=== PATIENT | male | born 1945 | race Caucasian/White ===

== ENCOUNTER 2017-08-16 19:02 | Emergency (ER) | payer MEDICARE, OTHER ==
--- NOTE | 2017-08-16 19:42 | RAD ---
CHEST ONE VIEW 08/16/17 HISTORY: Emergency exam. Chest pain. COMPARISON: Chest one view 01/08/17. FINDINGS: The lungs are clear. No pneumothorax or effusion. The cardiac silhouette and mediastinal contours are within normal limits. No displaced rib fracture. IMPRESSION: No acute intrathoracic abnormality. POS: [facility]
== END 2017-08-16 20:34 | disposition home or self-care (01) ==
LOC: ERS 19:02
DX: S29.012A Strain of muscle and tendon of back wall of thorax, initial encounter (principal); I10 Essential (primary) hypertension; E11.9 Type 2 diabetes mellitus without complications; F17.210 Nicotine dependence, cigarettes, uncomplicated; Z79.899 Other long term (current) drug therapy; Z79.84 Long term (current) use of oral hypoglycemic drugs; X50.1XXA Overexertion from prolonged static or awkward postures, initial encounter
CPT/HCPCS: 71010

== ENCOUNTER 2017-12-09 13:10 | Emergency (ER) | payer MEDICARE, OTHER | END 2017-12-09 14:54 | disposition left against medical advice (07) | LOC: ERS 13:10 | DX: Z53.21 Procedure and treatment not carried out due to patient leaving prior to being seen by health care provider (principal) ==

== ENCOUNTER 2017-12-20 15:59 | Inpatient (IN) | payer MEDICARE, OTHER ==
[2017-12-20 16:46] LABS: #Eosinphils 0.1 thou/uL (0.0-0.7); #Lymphocytes 2.6 thou/uL (1.20-3.40); #Monocytes 0.7 thou/uL (0.11-0.59); #Neutrophils 10.6 thou/uL (1.40-6.50); %Basophils 0.2 % (0.0-1.0); %Eosinophils 0.4 % (0.0-10.0); %Lymphocytes 18.6 % (21.0-51.0); %Monocytes 5.2 % (0.0-10.0); %Neutrophils 75.6 % (42.0-75.0); Hemoglobin 10.7 g/dL (14.0-18.0); Mean Corpuscular Hemoglobin 27.6 pg (27.0-31.0); Mean Corpuscular Volume 89.2 fl (80.0-94.0); Mean Platelet Volume 7.2 fL (7.4-10.4); Platelet Count 412 thou/uL (130-400); RBC Distribution Width 16.5 % (11.5-14.5); Red Blood Cell (RBC) Count 3.87 mill/uL (4.70-6.10)
[2017-12-20 16:53] LABS: Lactic Acid 3.3 mmol/L (0.5-2.2)
[2017-12-20 16:54] LABS: INR-International Normal Ratio 1.1; PTT 34.4 SEC (22.9-36.1); Prothrombin Time 14.7 SEC (12.0-14.7)
[2017-12-20 16:58] LABS: Bilirubin Negative (Negative); Blood, Urine Moderate (Negative); Clarity CLOUDY (Clear); Glucose, Urine (Dipstick) 100 mg/dL (Negative); Leukocyte Large (Negative); Nitrite Negative (Negative); Protein, Urine (Dipstick) 30 mg/dL (Neg-Trace); Specific Gravity, Urine 1.015 (1.002-1.036); Urobilinogen 0.2 mg/dL (0.2-1.0); pH, Urine 5.5 (5.0-9.0)
[2017-12-20 17:00] LABS: Bacteria/HPF None Seen HPF (None Seen); Hyaline Casts/LPF 7-10 HYALINE CAST LPF (0-3 Hyaline); Pathc Cast-AUWi Flag 1.45 (0-2.49); Squamous Epithelial None Seen HPF (0-3)
[2017-12-20 17:00] LABS: ALT (SGPT) 20 U/L (8-55); AST (SGOT) 20 U/L (5-34); Albumin 3.1 g/dL (3.4-4.8); Alcohol Less than 10 mg/dL (Less than 10); Alkaline Phosphatase 98 U/L (40-150); Anion Gap 14 mmol/L (10-20); BUN (Urea Nitrogen) 21 mg/dL (8.4-25.7); Bilirubin, Total 0.2 mg/dL (0.2-1.2); Calc. Creatinine Clearance 0 mL/min (70-130); Calcium 9.8 mg/dL (7.8-10.44); Carbon Dioxide 22 mmol/L (23-31); Chloride 107 mmol/L (98-107); Estimated GFR-MDRD Greater than 90; Globulin 4.6 g/dL (2.4-3.5); Glucose 165 mg/dL (83-110); Lipase 132 U/L (8-78); Potassium 4.3 mmol/L (3.5-5.1); Protein, Total 7.7 g/dL (5.8-8.1); Sodium 139 mmol/L (136-145)
[2017-12-20 17:03] LABS: Troponin I 0.013 ng/mL (< 0.028)
[2017-12-20 17:07] LABS: Base Excess-Venous -3.2 mmol/L (0 (+/- 2.5)); Bicarbonate (HCO3v) 20.5 mmol/L (1.0-85.0); CO2 Tension (PvCO2) 31.5 mmHg (41.0-51.0); Hemoglobin - Calc 11.7 g/dL (12.0-18.0); O2 Tension (PvO2) 75.3 mmHg (35.0-45.0); Potassium 4.4 mmol/L (3.4-4.7); T. Carbon Dioxide 21.5 mmol/L (1.0-85.0); pH (Venous) 7.421 (7.35-7.45); vO2 Saturation-calc 95.4 % (94-98)
[2017-12-20 17:09] LABS: Amphetamine Not Detected (NotDetected); Barbiturates Screen Not Detected (NotDetected); Benzodiazepine Screen Not Detected (NotDetected); Cocaine Metabolite Screen Not Detected (NotDetected); Medtox Control Line Valid? VALID (VALID); Medtox Reader # READER 4; Methadone Not Detected (NotDetected); Methamphetamine Not Detected (NotDetected); Opiate Screen Detected (NotDetected); Oxycodone Screen Not Detected (NotDetected); Phencyclidine (PCP) Not Detected (NotDetected); THC/Cannabinoid Screen Not Detected (NotDetected); Tricyclic Screen Not Detected (NotDetected)
--- NOTE | 2017-12-20 17:39 | CT ---
NONCONTRAST CT HEAD: 12/20/17 HISTORY: Altered mental status. COMPARISON: 09/24/17 FINDINGS: There are scattered low density areas in the periventricular white matter which are nonspecific but l ikely reflective of chronic small vessel ischemic changes. There is no evidence of an acute cortical infarction, hemorrhage, mass effect, or midline shift. There is mild cerebral volume loss similar to the prior exam. Ventricular system is normal in size, shape, and position. There is minimal mucosal t hickening in the right sphenoid sinus. Remainder of the visualized paranasal sinuses are clear. There is mucosal thickening seen in a few ethmoidal air cells bilaterally. IMPRESSION: 1. No acute intracranial abnormalities demonstrated. 2. Chronic small vessel ischemic changes and cerebral volume loss similar to prior study. 3. A few mastoid effusions bilaterally. POS: [facility]
--- NOTE | 2017-12-20 17:45 | RAD ---
TWO VIEWS RIGHT FOOT: 12/20/17 HISTORY: Black discoloration of right foot. Evaluate for osteomyelitis. FINDINGS: No acute fracture or dislocation is seen. No obvious osseous destruction is present. Plantar calcanea l enthesophyte is seen. No other osseous abnormality. IMPRESSION: 1. No definite osseous destruction is visualized to suggest osteomyelitis based on radiographic evaluation. However, if there are clinical findings of osteomyelitis, a three phase bone scan versus MRI right foot is recommended for further evaluation. 2. No acute osseous abnormality right foot. POS: [facility]
--- NOTE | 2017-12-20 17:49 | RAD ---
TWO VIEWS OF THE LEFT FOOT: 12/20/17 HISTORY: Black discoloration of feet, primarily in region of the toes. Evaluate for osteomyelitis. FINDINGS: There is osteopenia present. There is mild osteoarthritis involving the first metatarsophalangeal nicole nt. There is a rounded lucency seen within the proximal phalanx of the great toe. Similar finding is seen within the distal phalanx of the great toe. These findings could be related to more focal areas of osteopenia, subtle lytic lesions in this region are not entirely suggested. There is no osseous de struction present. No fracture is identified. Plantar calcaneal enthesophyte is present. IMPRESSION: 1. Diffuse osteopenia. There is no obvious osseous destruction to suggest osteomyelitis based on radiographic evaluation. If there is concern for osteomyelitis, MRI versus three phase bone scan is suggested for further evaluation. 2. Subtle rounded lucencies within the proximal and distal phalanx of the left great toe. Exact etiology for these lytic lesions is uncertain based on this exam. This is not thought to be related t o more focal areas of osteopenia. There is diffuse osteopenia involving the left foot. POS: [facility]
--- NOTE | 2017-12-20 18:19 | RAD ---
PORTABLE AP CHEST X-RAY 12/20/17 HISTORY: Altered mental status. COMPARISON: 10/21/17. FINDINGS: There has been improvement in pleural and parenchymal changes at the right lung base which may be rel ated to improvement in pneumonia and right pleural effusion. However, there is slight blunting of the right lateral costophrenic angle which may be related to persistent small right pleural effusion carol sheryl pleural and parenchymal scarring. There is a nodular density at the lateral aspect left mid lung zone which may represent an overlying nipple shadow. Left lung is otherwise clear. The cardiac silhou ette and pulmonary vasculature are within normal limits for the portable technique of the study. Vasc ular calcifications are seen in the thoracic aorta. Calcifications seen just inferior to the right gl enohumeral joint. This was seen on a CT exam on 09/24/17. IMPRESSION: 1. Nodular density left mid lung zone probably related to a nipple shadow. However, followup sherry st x-ray with nipple markers in place would be helpful for further evaluation. 2. Blunting right lateral costophrenic angle which may represent a small right pleural effusion versus pleural and parenchymal scarring. POS: [facility]
[2017-12-20] MEDS ORDERED: Dextrose 50% Abboject 50 ML SYRINGE SLOW IVP PRN (18:28)
[2017-12-20] MEDS ORDERED: Dextrose 5% in Water 1,000 ML IV PRN (18:28)
[2017-12-20] MEDS ORDERED: Ondansetron HCl/PF 4 MG/2 ML Vial IVP PRN (19:00)
[2017-12-20] MEDS ORDERED: Sodium Chloride 0.9% 1,000 ML IV SCH (19:00)
[2017-12-20] MEDS ORDERED: Acetaminophen 650 MG Suppository PR PRN (19:00)
[2017-12-20] MEDS ORDERED: Milk Of Magnesia 30 ML UDCUP PO PRN (19:00)
[2017-12-20] MEDS ORDERED: Albuterol Sulfate 2.5 mg/3 ml Neb NEB PRN (19:11)
--- NOTE | 2017-12-20 20:06 | HP ---
PRIMARY CARE PHYSICIAN: Alexsander Davila D.O. CHIEF COMPLAINT: Altered mental status. HISTORY OF PRESENT ILLNESS: A 72-year-old male with a past medical history of peripheral vascular disease with necrotic toes and ulcers, type 2 diabetes mellitus, hypertension, COPD, dyslipidemia, diastolic heart failure, and physical deconditioning who was brought to the emergency room by his on account of altered mental status. She reports that he seemed off yesterday and was getting more incoherence. Then, today he felt more sleepy and was more confused. He was very incoherent, lethargic and patient felt he was going to and started telling his he loved her and was more or less telling her goodbye. There is no history of chest pain, shortness of breath, nausea, vomiting, diarrhea. He reports no cough, sputum production, PND, orthopnea, lower extremity edema. He had no abdominal or urinary symptoms. PAST MEDICAL HISTORY: Peripheral vascular disease with necrotic toes and ulcers on left and right lower extremities, diabetes mellitus type 2, longstanding hypertension, COPD, dyslipidemia, CAD, chronic diastolic heart failure, physical deconditioning and decubitus ulcers. PAST SURGICAL HISTORY: Hip fusion, sigmoid and left colectomy with transverse colostomy, previous bowel resection for polyp, tonsillectomy, bypass graft into the left leg. PSYCHIATRIC HISTORY: Anxiety and depression. FAMILY HISTORY: Reviewed and noncontributory. ALLERGIES: None. HOME MEDICATIONS: Ascorbic acid at 1000 mg daily, aspirin 81 mg daily, atorvastatin 40 mg daily, ciprofloxacin 500 mg b.i.d., vitamin B12 1000 mcg daily, duloxetine 60 mg daily, famotidine 20 mg b.i.d., Furosemide 40 mg daily, Gabapentin 300 mg b.i.d., insulin detemir 36 units subcutaneously b.i.d., Ipratropium/albuterol sulfate 3 mL q.4 hours p.r.n. for shortness of breath/ wheezing, Protonix 40 mg daily, tamsulosin 0.4 mg daily, tramadol 50 mg q.4 hours, vancomycin 1 gram q.12 hours, carvedilol 6.25 mg b.i.d., fluconazole 100 mg daily, metronidazole 250 mg t.i.d. REVIEW OF SYSTEMS: Unable to conduct as the patient is currently altered and not able to respond appropriately. PHYSICAL EXAMINATION: VITAL SIGNS: Stable. GENERAL: Not in acute distress, lying down in bed, lethargic. HEENT: Normocephalic, atraumatic. Not pale, anicteric. PERRLA. Moist mucous membranes. NECK: Supple, full range of movement. No JVD. CARDIOVASCULAR: Regular rate and rhythm, S1 and S2 only with no murmurs, rubs or gallops. RESPIRATORY: Vesicular breath sounds bilaterally with no wheezes, rales or rhonchi. ABDOMEN: Soft, nontender, nondistended. Bowel sounds present. Colostomy bag in place with brown stool. No hepatosplenomegaly. EXTREMITIES: Has dry gangrene bilaterally with all five toes on the left extremity that affected and the first right toe affected. No edema. SKIN: Extremity exam as above. He has sacral decubitus ulcers. NEUROLOGIC: Unable to cooperate with exam due to acute encephalopathy. PSYCHIATRIC: Unable to cooperate with the exam. LABORATORY DATA: He has leukocytosis of 14,000, otherwise CBC unremarkable. CMP also largely unremarkable apart from lactic acid of 3.3. TSH within normal limits. Troponin 0.013. IMAGING: Chest x-ray showed a nodular density in the left mid lung zone, probably related to a nipple shadow and blunting of the right lateral costophrenic angle which may represent a small right pleural effusion versus pleural and parenchymal scarring. Foot x-rays did not show any osteomyelitis. Of note, the patient has refused further evaluation for these gangrene in the past. Brain CT showed no acute pathology, it shows chronic small vessel ischemic changes and cerebral volume loss similar to a prior study with few mastoid effusions bilaterally. EKG showed no signs of ischemia. ASSESSMENT AND PLAN: 1. Acute encephalopathy. This is likely secondary to sepsis from a urinary source as he had a large number of leukocyte esterase and greater than 50 urine WBCs. Urine cultures and blood cultures have been collected. He will be started on IV fluids, broad spectrum antibiotics with vancomycin and ceftriaxone. We will monitor vital signs closely as well. 2. Sepsis as above. 3. Urinary tract infection as above. 4. Chronic obstructive pulmonary disease. He is currently not in acute exacerbation. He will be started on DuoNeb and albuterol scheduled and p.r.n. 5. Type 2 diabetes mellitus. His blood sugars are fairly well controlled now. He will be placed on a diabetic diet if he can tolerate orally, fingerstick glucose before meals and at bedtime, sliding scale insulin and hypoglycemia protocol. We will also obtain hemoglobin A1c. 6. Chronic diastolic congestive heart failure. The patient is on Lasix at home. We will continue and restrict fluid intake. 7. Sacral decubitus ulcers. We will obtain wound care consults. 8. Dyslipidemia. We will continue home medications. 9. Peripheral vascular disease. He has multiple dry gangrene in his toes. We will get a Podiatry consult. He had refused further evaluation in the past, but we will also obtain CRP and ESR 10. Hypertension. Blood pressure currently at goal. We will resume home medications. CODE STATUS: The patient is a DNI, so the patient's would like resuscitation, but does not want intubation. LUISD
[2017-12-20 22:11] VITALS: BMI 22.6
[2017-12-20] MEDS: Docusate 100 MG CAP PO SCH (23:57)
[2017-12-20] MEDS: Famotidine 20 MG TAB PO SCH (23:57)
[2017-12-20] MEDS: Heparin 5,000 UNITS/ML VIAL SC SCH (23:58)
[2017-12-21] MEDS: Vancomycin HCl 1.5 GM in Sodium Chloride 0.9% 250 ML 300 ML IVPB SCH ×2 (05:03→16:43)
[2017-12-21 05:09] LABS: #Eosinphils 0.1 thou/uL (0.0-0.7); #Monocytes 0.7 thou/uL (0.11-0.59); #Neutrophils 9.1 thou/uL (1.40-6.50); %Basophils 0.2 % (0.0-1.0); %Eosinophils 0.5 % (0.0-10.0); %Lymphocytes 23.2 % (21.0-51.0); %Monocytes 5.3 % (0.0-10.0); %Neutrophils 70.8 % (42.0-75.0); Mean Corpuscular HGB CONC 32.1 g/dL (32.0-36.0); Mean Corpuscular Volume 87.2 fl (80.0-94.0); Platelet Count 378 thou/uL (130-400); RBC Distribution Width 16.1 % (11.5-14.5); Red Blood Cell (RBC) Count 3.58 mill/uL (4.70-6.10); White Blood Cell (WBC) Count 12.8 thou/uL (4.8-10.8)
[2017-12-21 05:17] LABS: Hemoglobin A1c 7.9 % (4.0-6.0)
[2017-12-21 05:29] LABS: Anion Gap 13 mmol/L (10-20); BUN (Urea Nitrogen) 18 mg/dL (8.4-25.7); Calc. Creatinine Clearance 95 mL/min (70-130); Calcium 9.4 mg/dL (7.8-10.44); Carbon Dioxide 24 mmol/L (23-31); Chloride 108 mmol/L (98-107); Estimated GFR-MDRD Greater than 90; Glucose 180 mg/dL (83-110); Potassium 4.1 mmol/L (3.5-5.1); Sodium 141 mmol/L (136-145)
[2017-12-21] MEDS: Heparin 5,000 UNITS/ML VIAL SC SCH ×3 (08:55→20:04)
[2017-12-21] MEDS ORDERED: FLU VACC TS2017-18 (>65YR) 0.5 ML SYRINGE IM ONE (09:00)
[2017-12-21] MEDS: Docusate 100 MG CAP PO SCH ×2 (09:10→20:04)
[2017-12-21] MEDS: Famotidine 20 MG TAB PO SCH ×2 (09:11→20:04)
[2017-12-21] MEDS ORDERED: Ketorolac Tromethamine 30 MG/ML VIAL IVP SCH (10:15)
[2017-12-21] MEDS: HumaLOG 300 UNITS/3 ML VIAL SC PRN (11:53)
[2017-12-21] MEDS: Baclofen 10 MG TAB PO SCH ×2 (16:42→20:03)
[2017-12-21] MEDS: Tamsulosin HCl 0.4 MG CAP PO SCH (16:43)
[2017-12-21] MEDS: cefTRIAXone\\ROCEPHIN 1 GM in Sodium Chloride 0.9% 10 ML SLOW IVP SCH (18:58)
[2017-12-21] MEDS: Carvedilol 6.25 MG TAB PO SCH (20:04)
--- NOTE | 2017-12-21 20:35 | PDOC.PN ---
- Subjective Encounter Start Date: 12/21/17 Encounter Start Time: 14:00 Patient seen and examined. No new complaints. No overnight events - Objective Resuscitation Status: Resuscitation Status DNI:No Intubation MAR Reviewed: Yes Vital Signs & Weight: Vital Signs (12 hours) Temp Pulse Resp BP BP Pulse Ox 12/21/17 20:04 130/57 L 12/21/17 20:00 98.2 F 87 20 130/57 L 98 12/21/17 19:46 76 20 12/21/17 16:32 98.7 F 85 20 149/63 H 98 12/21/17 11:34 89 20 97 12/21/17 11:27 98.2 F 88 16 124/63 96 12/21/17 08:36 97.8 F 87 16 152/65 H 97 I&O: 12/20/17 12/21/17 12/22/17 06:59 06:59 06:59 Intake Total 550 Output Total 1 Balance 549 Result Diagrams: 12/22/17 03:15 12/22/17 03:15 Additional Labs: Accuchecks 12/21/17 12/21/17 12/21/17 16:23 11:18 06:01 POC Glucose 200 H 206 H 188 H 12/21/17 00:02 POC Glucose 179 H Phys Exam - Physical Examination Constitutional: NAD Respiratory: no wheezing, no rhonchi Cardiovascular: RRR, no rub Gastrointestinal: soft, non-tender, positive bowel sounds Musculoskeletal: no edema Dx/Plan - Plan DVT proph w/lovenox IMPRESSION: 1. Toxic Metabolic Encephalopathy due to UTI 2. Decubitus ulcer present on admission (Please see wound care note) 3. DM2 4. HTN 5. CAD / PAD / Chronic Anemia 6. Other issues per H&P PLAN: * Cont Atbx * Cont Glimepiride at low dose * Cont sliding scale * Resume other home meds including Coreg * Cont wound care * Consult Palliative care Review of Systems - Review of Systems Other: Cannot be obtained reliably due to current mentation - Medications/Allergies Allergies/Adverse Reactions: Allergies Allergy/AdvReac Type Severity Reaction Status Date / Time No Known Drug Allergies Allergy Verified 10/23/17 20:29 Medications: Current Medications Acetaminophen (Tylenol) 650 mg PO Q4H PRN PRN Reason: Headache/Fever or Pain Acetaminophen (Tylenol) 650 mg FL Q4H PRN PRN Reason: Headache/Fever or Pain Albuterol Sulfate (Ventolin) 2.5 mg NEB [id number] PRN PRN Reason: SOB &/or Wheezing Albuterol/Ipratropium (Duoneb) 3 ml NEB [id number] [facility] Last Admin: 12/21/17 19:46 Dose: 3 ml Albuterol/Ipratropium (Duoneb) 3 ml NEB Q4H PRN PRN Reason: SOB &/or Wheezing Atorvastatin Calcium (Lipitor) 40 mg PO DAILY [facility] Baclofen (Lioresal) 20 mg PO TID [facility] Last Admin: 12/21/17 20:03 Dose: 20 mg Carvedilol (Coreg) 6.25 mg PO BID [facility] Last Admin: 12/21/17 20:04 Dose: 6.25 mg Dextrose/Water (Dextrose 50%) 25 gm SLOW IVP PRN PRN PRN Reason: Hypoglycemia Docusate Sodium (Colace) 100 mg PO BID [facility] Last Admin: 12/21/17 20:04 Dose: 100 mg Duloxetine HCl (Cymbalta) 60 mg PO DAILY [facility] Famotidine (Pepcid) 20 mg PO BID [facility] Last Admin: 12/21/17 20:04 Dose: 20 mg Glimepiride (Amaryl) 2 mg PO QAM-[facility] Glucagon (Glucagon) 1 mg IM PRN PRN PRN Reason: Hypoglycemia Heparin Sodium (Porcine) (Heparin) 5,000 units SC TID [facility] Last Admin: 12/21/17 20:04 Dose: 5,000 units Dextrose/Water (D5w) 1,000 mls @ 0 mls/hr IV .Q0M PRN; As Directed PRN Reason: Hypoglycemia Ceftriaxone Sodium 1 gm/ (Sodium Chloride) 10 mls @ 120 mls/hr SLOW IVP 1800 [facility] Last Admin: 12/21/17 18:58 Dose: 10 mls Vancomycin HCl 1.5 gm/ Sodium (Chloride) 300 mls @ 200 mls/hr IVPB 0500,1700 [facility] Last Admin: 12/21/17 16:43 Dose: 300 mls Insulin Human Lispro (Humalog) 0 units SC .MILD SLIDING SCALE PRN PRN Reason: Mild Correctional Scale Last Admin: 12/21/17 11:53 Dose: 3 unit Lactulose (Lactulose) 20 gm PO DAILYPRN PRN PRN Reason: Constipation Magnesium Hydroxide (Milk Of Magnesium) 30 ml PO DAILYPRN PRN PRN Reason: Constipation Minocycline HCl (Minocycline Hcl) 100 mg PO BID [facility] Last Admin: 12/21/17 20:04 Dose: 100 mg Miscellaneous Medication (Pharmacy To Dose) 1 each IVPB PRN PRN PRN Reason: Pharmacy to dose Ondansetron HCl (Zofran) 4 mg IVP Q6H PRN PRN Reason: Nausea/Vomiting Pioglitazone HCl (Actos) 30 mg PO DAILY [facility] Sodium Chloride (Flush - Normal Saline) 10 ml IVF Q12HR [facility] Last Admin: 12/21/17 20:04 Dose: 10 ml Sodium Chloride (Flush - Normal Saline) 10 ml IVF PRN PRN PRN Reason: Saline Flush Tamsulosin HCl (Flomax) 0.4 mg PO BID-AC [facility] Last Admin: 12/21/17 16:43 Dose: 0.4 mg Tramadol HCl (Ultram) 50 mg PO Q4H PRN PRN Reason: Mild-Moderate Pain (1-5)
[2017-12-22] MEDS: traMADol HCl 50 MG TAB PO PRN ×4 (00:31→21:03)
[2017-12-22 03:25] LABS: #Basophils 0.1 thou/uL (0.0-0.2); #Eosinphils 0.1 thou/uL (0.0-0.7); #Monocytes 0.7 thou/uL (0.11-0.59); %Basophils 0.5 % (0.0-1.0); %Eosinophils 0.8 % (0.0-10.0); %Lymphocytes 27.8 % (21.0-51.0); %Monocytes 6.4 % (0.0-10.0); %Neutrophils 64.6 % (42.0-75.0); Hemoglobin 10.6 g/dL (14.0-18.0); Mean Corpuscular HGB CONC 31.9 g/dL (32.0-36.0); Mean Corpuscular Hemoglobin 27.6 pg (27.0-31.0); Mean Corpuscular Volume 86.5 fl (80.0-94.0); Mean Platelet Volume 6.7 fL (7.4-10.4); Platelet Count 392 thou/uL (130-400); RBC Distribution Width 16.2 % (11.5-14.5); Red Blood Cell (RBC) Count 3.84 mill/uL (4.70-6.10); White Blood Cell (WBC) Count 10.9 thou/uL (4.8-10.8)
[2017-12-22 03:41] LABS: Vancomycin, Trough 23.9 ug/mL
[2017-12-22 03:43] LABS: Anion Gap 11 mmol/L (10-20); BUN (Urea Nitrogen) 16 mg/dL (8.4-25.7); Calc. Creatinine Clearance 97 mL/min (70-130); Carbon Dioxide 22 mmol/L (23-31); Chloride 108 mmol/L (98-107); Estimated GFR-MDRD Greater than 90; Glucose 125 mg/dL (83-110); Potassium 3.5 mmol/L (3.5-5.1); Sodium 137 mmol/L (136-145)
[2017-12-22] MEDS: Famotidine 20 MG TAB PO SCH ×2 (07:49→21:03)
[2017-12-22] MEDS: Baclofen 10 MG TAB PO SCH ×2 (07:50→15:38)
[2017-12-22] MEDS: Atorvastatin Calcium 40 MG TAB PO SCH (07:50)
[2017-12-22] MEDS: Tamsulosin HCl 0.4 MG CAP PO SCH ×2 (07:50→15:47)
[2017-12-22] MEDS: Carvedilol 6.25 MG TAB PO SCH ×2 (07:51→21:02)
[2017-12-22] MEDS: DULoxetine 60 MG CAP PO SCH (07:51)
[2017-12-22] MEDS: Pioglitazone HCl 15 MG TAB PO SCH (07:51)
[2017-12-22] MEDS: Docusate 100 MG CAP PO SCH ×2 (07:51→21:03)
[2017-12-22] MEDS ORDERED: Glimepiride 2 MG TAB PO SCH (08:00)
[2017-12-22] MEDS: HumaLOG 300 UNITS/3 ML VIAL SC PRN ×2 (13:04→17:54)
[2017-12-22] MEDS: Vancomycin HCl 1 GM in Premix Bag 1 BAG IVPB SCH (13:04)
--- NOTE | 2017-12-22 15:57 | PQF ---
CLINICAL DOCUMENTATION IMPROVEMENT CLARIFICATION FORM: ICD-10 Updated PLEASE DO AN ADDENDUM TO THE PROGRESS NOTE WITH ANY DOCUMENTATION UPDATES OR ADDITIONS AND CARRY THROUGH TO DC SUMMARY. THANK YOU. DATE: 12/22/17 ATTN: DR. NELSON Please exercise your independent, professional judgment in responding to the clarification form. Clinical indicators are provided on the bottom of this form for your review Please check appropriate box(s) to clarify if the following diagnosis has been ruled in or ruled out: SEPSIS [ ] Ruled in diagnosis [ ] Continue to treat [ ] Resolved [ ] Ruled out diagnosis [ ] Cannot rule out diagnosis [ ] Other diagnosis [ ] Unable to determine In addition, please specify: Present on Admission (POA): [ ] Yes [ ] No [ ] Unable to determine For continuity of documentation, please document condition throughout progress notes and discharge summary. Thank You. CLINICAL INDICATORS - SIGNS / SYMPTOMS / LABS H&P 12/20: "SEPSIS" WBC 14 RISKS: UTI ACUTE ENCEPHALOPATHY TREATMENT: IV ROCEPHIN (ER-PRESENT) IV VANCOMYCIN (ER-PRESENT) SERIAL LABS BLOOD CULTURES (This form is maintained as a part of the permanent medical record) 2014 [employer]. All Rights Reserved CADEN [email or web address] Office: [phone] Thanks WILEY
--- NOTE | 2017-12-22 16:53 | PDOC.PN ---
- Subjective Encounter Start Date: 12/22/17 Encounter Start Time: 16:50 Patient seen and examined. No new complaints. Overnight events noted - had pulled wound vac. Mentation back to baseline. - Objective Resuscitation Status: Resuscitation Status DNI:No Intubation MAR Reviewed: Yes Vital Signs & Weight: Vital Signs (12 hours) Temp Pulse Resp BP BP Pulse Ox 12/22/17 13:40 73 20 97 12/22/17 11:00 97.8 F 68 18 118/59 L 99 12/22/17 08:00 97.8 F 73 20 12/22/17 07:51 175/69 H 12/22/17 07:22 98.1 F 77 16 175/69 H 100 12/22/17 07:18 74 18 100 Weight Admit Weight 167 lb 6 oz Weight 167 lb 6 oz I&O: 12/21/17 12/22/17 12/23/17 06:59 06:59 06:59 Intake Total 1030 Output Total 151 Balance 879 Result Diagrams: 12/22/17 03:15 12/22/17 03:15 Additional Labs: Accuchecks 12/22/17 12/22/17 12/21/17 11:21 05:02 20:54 POC Glucose 241 H 139 H 143 H Phys Exam - Physical Examination Constitutional: NAD Respiratory: no wheezing, no rhonchi Cardiovascular: RRR, no rub Gastrointestinal: soft, positive bowel sounds wound vac/ Stomy + Musculoskeletal: no edema several wounds +, gangrene + Neurological: moves all 4 limbs Dx/Plan - Plan plan discussed w/ family, continue antibiotics, DVT proph w/lovenox IMPRESSION: 1. Toxic Metabolic Encephalopathy due to infectious etio ?UTI - cultures negative/ ?Sepsis due to UTI (present on admission) 2. Decubitus ulcer present on admission (Please see wound care note) 3. DM2 4. HTN 5. CAD / PAD / Chronic Anemia 6. Other issues per H&P PLAN: * Cont IV Atbx * Cont Glimepiride with sliding scale * Cont current meds as below includign Coreg * Change Baclofen to BID (Patient states that he takes BID) * Cont wound care * Consult ID to r/o other infectious etio * Review of Systems - Review of Systems Respiratory: negative: Cough, Dry, Shortness of Breath, Hemoptysis, SOB with Excertion, Pleuritic Pain, Sputum, Wheezing Cardiovascular: negative: chest pain, palpitations, orthopnea, paroxysmal nocturnal dyspnea, edema, light headedness Gastrointestinal: negative: Nausea, Vomiting, Abdominal Pain, Diarrhea, Constipation, Melena, Hematochezia - Medications/Allergies Allergies/Adverse Reactions: Allergies Allergy/AdvReac Type Severity Reaction Status Date / Time No Known Drug Allergies Allergy Verified 10/23/17 20:29 Medications: Current Medications Acetaminophen (Tylenol) 650 mg PO Q4H PRN PRN Reason: Headache/Fever or Pain Acetaminophen (Tylenol) 650 mg SD Q4H PRN PRN Reason: Headache/Fever or Pain Albuterol Sulfate (Ventolin) 2.5 mg NEB [id number] PRN PRN Reason: SOB &/or Wheezing Albuterol/Ipratropium (Duoneb) 3 ml NEB [id number] [facility] Last Admin: 12/22/17 13:40 Dose: 3 ml Albuterol/Ipratropium (Duoneb) 3 ml NEB [id number] PRN PRN Reason: SOB &/or Wheezing Atorvastatin Calcium (Lipitor) 40 mg PO DAILY [facility] Last Admin: 12/22/17 07:50 Dose: 40 mg Baclofen (Lioresal) 20 mg PO BID [facility] Carvedilol (Coreg) 6.25 mg PO BID [facility] Last Admin: 12/22/17 07:51 Dose: 6.25 mg Dextrose/Water (Dextrose 50%) 25 gm SLOW IVP PRN PRN PRN Reason: Hypoglycemia Docusate Sodium (Colace) 100 mg PO BID [facility] Last Admin: 12/22/17 07:51 Dose: 100 mg Duloxetine HCl (Cymbalta) 60 mg PO DAILY [facility] Last Admin: 12/22/17 07:51 Dose: 60 mg Enoxaparin Sodium (Lovenox) 30 mg SC 2100 [facility] Famotidine (Pepcid) 20 mg PO BID [facility] Last Admin: 12/22/17 07:49 Dose: 20 mg Glimepiride (Amaryl) 2 mg PO QAM-WM [facility] Last Admin: 12/22/17 07:51 Dose: 2 mg Glucagon (Glucagon) 1 mg IM PRN PRN PRN Reason: Hypoglycemia Dextrose/Water (D5w) 1,000 mls @ 0 mls/hr IV .Q0M PRN; As Directed PRN Reason: Hypoglycemia Ceftriaxone Sodium 1 gm/ (Sodium Chloride) 10 mls @ 120 mls/hr SLOW IVP 1800 [facility] Last Admin: 12/21/17 18:58 Dose: 10 mls Vancomycin HCl 1 gm/ Device 200 mls @ 200 mls/hr IVPB 0200,1400 [facility] Last Admin: 12/22/17 13:04 Dose: 200 mls Insulin Human Lispro (Humalog) 0 units SC .MILD SLIDING SCALE PRN PRN Reason: Mild Correctional Scale Last Admin: 12/22/17 13:04 Dose: 3 unit Lactulose (Lactulose) 20 gm PO DAILYPRN PRN PRN Reason: Constipation Magnesium Hydroxide (Milk Of Magnesium) 30 ml PO DAILYPRN PRN PRN Reason: Constipation Minocycline HCl (Minocycline Hcl) 100 mg PO BID [facility] Last Admin: 12/22/17 07:50 Dose: 100 mg Miscellaneous Medication (Pharmacy To Dose) 1 each IVPB PRN PRN PRN Reason: Pharmacy to dose Ondansetron HCl (Zofran) 4 mg IVP Q6H PRN PRN Reason: Nausea/Vomiting Pioglitazone HCl (Actos) 30 mg PO DAILY [facility] Last Admin: 12/22/17 07:51 Dose: 30 mg Sodium Chloride (Flush - Normal Saline) 10 ml IVF Q12HR [facility] Last Admin: 12/22/17 07:52 Dose: Not Given Sodium Chloride (Flush - Normal Saline) 10 ml IVF PRN PRN PRN Reason: Saline Flush Tamsulosin HCl (Flomax) 0.4 mg PO BID-AC [facility] Last Admin: 12/22/17 15:47 Dose: 0.4 mg Tramadol HCl (Ultram) 50 mg PO Q4H PRN PRN Reason: Mild-Moderate Pain (1-5) Last Admin: 12/22/17 15:38 Dose: 50 mg
[2017-12-22] MEDS: cefTRIAXone\\ROCEPHIN 1 GM in Sodium Chloride 0.9% 10 ML SLOW IVP SCH (17:55)
[2017-12-22] MEDS ORDERED: Glimepiride 1 MG TAB PO SCH (19:00)
[2017-12-22] MEDS ORDERED: Baclofen 10 MG TAB PO SCH (21:00)
[2017-12-22] MEDS: Enoxaparin Sodium 30 MG/0.3 ML SYRINGE SC SCH (21:03)
[2017-12-23] MEDS: Vancomycin HCl 1 GM in Premix Bag 1 BAG IVPB SCH ×3 (02:55→19:25)
[2017-12-23 05:30] LABS: #Eosinphils 0.1 thou/uL (0.0-0.7); #Lymphocytes 2.3 thou/uL (1.20-3.40); #Monocytes 0.6 thou/uL (0.11-0.59); #Neutrophils 5.5 thou/uL (1.40-6.50); %Basophils 0.5 % (0.0-1.0); %Eosinophils 0.9 % (0.0-10.0); %Lymphocytes 27.6 % (21.0-51.0); %Monocytes 6.5 % (0.0-10.0); %Neutrophils 64.5 % (42.0-75.0); Hemoglobin 10.8 g/dL (14.0-18.0); Mean Corpuscular HGB CONC 31.1 g/dL (32.0-36.0); Mean Corpuscular Hemoglobin 26.9 pg (27.0-31.0); Mean Corpuscular Volume 86.7 fl (80.0-94.0); Mean Platelet Volume 6.6 fL (7.4-10.4); Platelet Count 366 thou/uL (130-400); RBC Distribution Width 15.9 % (11.5-14.5); White Blood Cell (WBC) Count 8.5 thou/uL (4.8-10.8)
[2017-12-23] MEDS: traMADol HCl 50 MG TAB PO PRN ×4 (05:32→17:23)
[2017-12-23 05:41] LABS: Anion Gap 10 mmol/L (10-20); BUN (Urea Nitrogen) 16 mg/dL (8.4-25.7); Calc. Creatinine Clearance 93 mL/min (70-130); Calcium 8.7 mg/dL (7.8-10.44); Carbon Dioxide 25 mmol/L (23-31); Chloride 106 mmol/L (98-107); Estimated GFR-MDRD Greater than 90; Glucose 206 mg/dL (83-110); Potassium 3.7 mmol/L (3.5-5.1); Sodium 137 mmol/L (136-145)
[2017-12-23] MEDS: HumaLOG 300 UNITS/3 ML VIAL SC PRN ×3 (05:53→17:18)
[2017-12-23] MEDS: Docusate 100 MG CAP PO SCH ×2 (09:22→19:58)
[2017-12-23] MEDS: Baclofen 10 MG TAB PO SCH ×2 (09:22→19:57)
[2017-12-23] MEDS: Saccharomyces boulardii 250 MG CAP PO SCH (09:22)
[2017-12-23] MEDS: Famotidine 20 MG TAB PO SCH ×2 (09:23→19:58)
[2017-12-23] MEDS: Glimepiride 1 MG TAB PO SCH ×2 (09:23→17:18)
[2017-12-23] MEDS: DULoxetine 60 MG CAP PO SCH (09:23)
[2017-12-23] MEDS: Carvedilol 6.25 MG TAB PO SCH ×2 (09:24→19:58)
[2017-12-23] MEDS: Tamsulosin HCl 0.4 MG CAP PO SCH ×2 (09:24→17:18)
[2017-12-23] MEDS: Pioglitazone HCl 15 MG TAB PO SCH (09:24)
[2017-12-23] MEDS: Atorvastatin Calcium 40 MG TAB PO SCH (09:24)
--- NOTE | 2017-12-23 14:13 | CON ---
DATE OF CONSULTATION: 12/23/2017 REASON FOR CONSULTATION: Altered mental status. HISTORY OF PRESENT ILLNESS: A 72-year-old whom I had seen at the end of September this year when he pr esented with a history of peripheral vascular disease, diabetes mellitus type 2, hypertension, COPD, and coronary artery disease admitted in 2017 with pneumonia and then had a cardiac arrest and multipl e complications associated with ischemia including ischemic bowel and DIC with ischemia of the distal lower extremities with dry gangrene. He had a decubitus ulcer and he was treated with short amount of antimicrobial therapy and now he is readmitted because of noticeable change in mental status with drowsiness, incoherence, sleepiness and confusional state. No reported fever or chills. No aspirati on, no seizure activity. No nausea, vomiting or diarrhea. He voids spontaneously. PAST MEDICAL HISTORY: Include peripheral vascular disease, necrotic toes and ulcers after cardiac ar rest induced DIC, diabetes mellitus type 2, COPD, dyslipidemia, coronary artery disease, diastolic he art failure, and decubitus ulcer. PAST SURGICAL HISTORY: Hip effusion, sigmoid and left colectomy, transverse colostomy, tonsillectomy , bypass graft surgery, left leg. FAMILY HISTORY: Noncontributory. ALLERGIES: None. CURRENT MEDICATIONS: Tylenol, Ventolin, DuoNeb, Lipitor, Lioresal, Coreg, ceftriaxone, Cymbalta, Pep jeremy, Amaryl, insulin, minocycline, ondansetron, tramadol and vancomycin. PHYSICAL EXAMINATION: VITAL SIGNS: T-max 98.5, blood pressure 150/67, pulse 63, respirations 16, O2 sat 98%. GENERAL: Appears no distress, awake, oriented, follows commands, pleasant. SKIN: Exam shows the presacral area of ulceration with fresh granulation tissue covering 100% of the wound. There is minimal undermining. There is an area of ulceration, round shaped with a yellow ne crotic tissue, which appears superficial in the left leg. There is a midline surgical wound with neg ative pressure dressing. There is a necrotic heel ulcer in left or right side. The midline abdomina l wound has fresh granulation tissue in the middle. HEENT: No lymphadenopathy. Ocular movements conjugate. Oral cavity with no capitan grande band teeth seen. NECK: Supple. LUNGS: Symmetric clear breath sounds. HEART: S1 and S2, regular rate. ABDOMEN: Soft, not distended, not tender. No guarding. No bladder distention. Diffuse stiffness. MUSCULOSKELETAL: Pulses are diminished in dorsalis pedis. Dry gangrene in two toes on the right and left, and multiple toes in the right. LABORATORY DATA AND IMAGING DATA: White cell count is 14,000 down to 8.5, hemoglobin 10.8, platelets 366. INR 1.1, pH 7.42, venous pCO2 31. Sodium 137, creatinine 0.76. Liver profile normal. Albumi n 3.1. Urinalysis greater than [address], no acute intracranial abnormalities, small vesse l ischemic changes, mastoid effusions. Foot x-ray, no definite osseous destruction. Chest x-ray, no dular density in left mid lung zone, probably nipple shadow. No other findings of significance. ASSESSMENT: Peripheral vascular disease, recent episode of cardiac arrest with multiple areas of isc hemia, partial bowel resection with colostomy and dry gangrene in lower extremities, now with transie nt change in his mental status, which seems to have resolved. The patient has been started on broad spectrum coverage with Rocephin. He had been on minocycline for unclear indication. He is also on v ancomycin. DISCUSSION: The patient's transient delirium or change in mental status could have been multifactori al. Drug-induced plus some other changes. Transient bacteremia is another possibility. Urinary tra ct induced changes are considered. Wait on the culture results. Both blood and urine. If they kenton in negative, then discontinue antimicrobial therapy. Discontinue minocycline at this point in time. Minocycline can have [employer] adverse reactions such as the reactions described before this admission.
[2017-12-23] MEDS: cefTRIAXone\\ROCEPHIN 1 GM in Sodium Chloride 0.9% 10 ML SLOW IVP SCH (18:45)
[2017-12-23] MEDS: Enoxaparin Sodium 30 MG/0.3 ML SYRINGE SC SCH (19:58)
--- NOTE | 2017-12-23 22:33 | PDOC.PN ---
- Subjective Encounter Start Date: 12/23/17 Encounter Start Time: 16:00 Patient seen and examined. No new complaints. No overnight events - Objective Resuscitation Status: Resuscitation Status DNI:No Intubation MAR Reviewed: Yes Vital Signs & Weight: Vital Signs (12 hours) Temp Pulse Resp BP BP Pulse Ox 12/23/17 19:58 166/67 H 12/23/17 19:27 97.8 F 68 18 100 12/23/17 19:26 97.8 F 68 18 166/67 H 100 12/23/17 19:18 68 16 100 12/23/17 14:03 64 20 96 Weight Admit Weight 167 lb 6 oz Weight 167 lb 6 oz I&O: 12/22/17 12/23/17 12/24/17 06:59 06:59 06:59 Intake Total 1030 440 Output Total 151 150 Balance 879 290 Result Diagrams: 12/24/17 07:55 12/24/17 07:55 Additional Labs: Accuchecks 12/23/17 12/23/17 12/23/17 19:54 17:16 11:26 POC Glucose 248 H 187 H 188 H 12/23/17 05:42 POC Glucose 206 H Phys Exam - Physical Examination Constitutional: NAD Respiratory: no wheezing, no rhonchi Cardiovascular: RRR, no rub Gastrointestinal: soft, positive bowel sounds Wound vac/Colostomy + Musculoskeletal: no edema Neurological: moves all 4 limbs Dx/Plan - Plan DVT proph w/lovenox IMPRESSION: 1. Toxic Metabolic Encephalopathy due to infectious etio ?UTI - cultures negative/ ?Sepsis due to UTI (present on admission) 2. Decubitus ulcer present on admission (Please see wound care note) 3. DM2 - on sliding scale/glimepiride 4. HTN 5. CAD / PAD / Chronic Anemia 6. Other issues per H&P PLAN: * Cont IV Atbx per ID * Await final cultures per ID * Cont current meds as below * Cont Baclofen * Cont wound care * ID input appreciated Review of Systems - Review of Systems Cardiovascular: negative: chest pain, palpitations, orthopnea, paroxysmal nocturnal dyspnea, edema, light headedness Gastrointestinal: negative: Nausea, Vomiting, Abdominal Pain, Diarrhea, Constipation, Melena, Hematochezia - Medications/Allergies Allergies/Adverse Reactions: Allergies Allergy/AdvReac Type Severity Reaction Status Date / Time No Known Drug Allergies Allergy Verified 10/23/17 20:29 Medications: Current Medications Acetaminophen (Tylenol) 650 mg PO Q4H PRN PRN Reason: Headache/Fever or Pain Acetaminophen (Tylenol) 650 mg [place] Q4H PRN PRN Reason: Headache/Fever or Pain Albuterol Sulfate (Ventolin) 2.5 mg NEB [id number] PRN PRN Reason: SOB &/or Wheezing Albuterol/Ipratropium (Duoneb) 3 ml NEB [id number] [facility] Last Admin: 12/23/17 19:18 Dose: 3 ml Albuterol/Ipratropium (Duoneb) 3 ml NEB [id number] PRN PRN Reason: SOB &/or Wheezing Atorvastatin Calcium (Lipitor) 40 mg PO DAILY [facility] Last Admin: 12/23/17 09:24 Dose: 40 mg Baclofen (Lioresal) 20 mg PO BID [facility] Last Admin: 12/23/17 19:57 Dose: 20 mg Carvedilol (Coreg) 6.25 mg PO BID [facility] Last Admin: 12/23/17 19:58 Dose: 6.25 mg Dextrose/Water (Dextrose 50%) 25 gm SLOW IVP PRN PRN PRN Reason: Hypoglycemia Docusate Sodium (Colace) 100 mg PO BID [facility] Last Admin: 12/23/17 19:58 Dose: Not Given Duloxetine HCl (Cymbalta) 60 mg PO DAILY [facility] Last Admin: 12/23/17 09:23 Dose: 60 mg Enoxaparin Sodium (Lovenox) 30 mg SC 2100 [facility] Last Admin: 12/23/17 19:58 Dose: 30 mg Famotidine (Pepcid) 20 mg PO BID [facility] Last Admin: 12/23/17 19:58 Dose: 20 mg Glimepiride (Amaryl) 2 mg PO BID-[facility] Last Admin: 12/23/17 17:18 Dose: 2 mg Glucagon (Glucagon) 1 mg IM PRN PRN PRN Reason: Hypoglycemia Dextrose/Water (D5w) 1,000 mls @ 0 mls/hr IV .Q0M PRN; As Directed PRN Reason: Hypoglycemia Ceftriaxone Sodium 1 gm/ (Sodium Chloride) 10 mls @ 120 mls/hr SLOW IVP 1800 [facility] Last Admin: 12/23/17 18:45 Dose: 10 mls Vancomycin HCl 1 gm/ Device 200 mls @ 200 mls/hr IVPB 0800,2000 [facility] Last Admin: 12/23/17 19:25 Dose: Not Given Insulin Human Lispro (Humalog) 0 units SC .MILD SLIDING SCALE PRN PRN Reason: Mild Correctional Scale Last Admin: 12/23/17 17:18 Dose: 2 unit Lactulose (Lactulose) 20 gm PO DAILYPRN PRN PRN Reason: Constipation Magnesium Hydroxide (Milk Of Magnesium) 30 ml PO DAILYPRN PRN PRN Reason: Constipation Miscellaneous Medication (Pharmacy To Dose) 1 each IVPB PRN PRN PRN Reason: Pharmacy to dose Ondansetron HCl (Zofran) 4 mg IVP Q6H PRN PRN Reason: Nausea/Vomiting Pioglitazone HCl (Actos) 30 mg PO DAILY [facility] Last Admin: 12/23/17 09:24 Dose: 30 mg Saccharomyces Boulardii (Florastor) 250 mg PO DAILY [facility] Last Admin: 12/23/17 09:22 Dose: 250 mg Sodium Chloride (Flush - Normal Saline) 10 ml IVF Q12HR [facility] Last Admin: 12/23/17 19:58 Dose: 10 ml Sodium Chloride (Flush - Normal Saline) 10 ml IVF PRN PRN PRN Reason: Saline Flush Tamsulosin HCl (Flomax) 0.4 mg PO BID-AC [facility] Last Admin: 12/23/17 17:18 Dose: 0.4 mg Tramadol HCl (Ultram) 50 mg PO Q4H PRN PRN Reason: Mild-Moderate Pain (1-5) Last Admin: 12/23/17 17:23 Dose: 50 mg
[2017-12-24] MEDS: traMADol HCl 50 MG TAB PO PRN ×5 (01:13→21:11)
[2017-12-24] MEDS: HumaLOG 300 UNITS/3 ML VIAL SC PRN ×2 (05:30→12:57)
[2017-12-24 08:04] LABS: #Eosinphils 0.1 thou/uL (0.0-0.7); #Monocytes 0.7 thou/uL (0.11-0.59); %Basophils 0.2 % (0.0-1.0); %Eosinophils 0.9 % (0.0-10.0); %Lymphocytes 27.8 % (21.0-51.0); %Monocytes 6.2 % (0.0-10.0); %Neutrophils 64.9 % (42.0-75.0); Hemoglobin 11.1 g/dL (14.0-18.0); Mean Corpuscular HGB CONC 32.4 g/dL (32.0-36.0); Mean Corpuscular Hemoglobin 28.3 pg (27.0-31.0); Mean Corpuscular Volume 87.5 fl (80.0-94.0); Mean Platelet Volume 7.2 fL (7.4-10.4); Platelet Count 340 thou/uL (130-400); RBC Distribution Width 16.2 % (11.5-14.5); Red Blood Cell (RBC) Count 3.91 mill/uL (4.70-6.10); White Blood Cell (WBC) Count 10.8 thou/uL (4.8-10.8)
[2017-12-24 08:15] LABS: Anion Gap 13 mmol/L (10-20); BUN (Urea Nitrogen) 13 mg/dL (8.4-25.7); Calc. Creatinine Clearance 104 mL/min (70-130); Calcium 8.9 mg/dL (7.8-10.44); Carbon Dioxide 20 mmol/L (23-31); Chloride 106 mmol/L (98-107); Estimated GFR-MDRD Greater than 90; Glucose 164 mg/dL (83-110); Sodium 135 mmol/L (136-145)
[2017-12-24] MEDS: Atorvastatin Calcium 40 MG TAB PO SCH (08:17)
[2017-12-24] MEDS: Baclofen 10 MG TAB PO SCH ×2 (08:17→20:23)
[2017-12-24] MEDS: Tamsulosin HCl 0.4 MG CAP PO SCH ×2 (08:17→17:15)
[2017-12-24] MEDS: Docusate 100 MG CAP PO SCH ×2 (08:17→20:23)
[2017-12-24] MEDS: Glimepiride 1 MG TAB PO SCH ×2 (08:17→17:15)
[2017-12-24] MEDS: Pioglitazone HCl 15 MG TAB PO SCH (08:18)
[2017-12-24] MEDS: Saccharomyces boulardii 250 MG CAP PO SCH (08:18)
[2017-12-24] MEDS: Famotidine 20 MG TAB PO SCH ×2 (08:18→20:23)
[2017-12-24] MEDS: Carvedilol 6.25 MG TAB PO SCH ×2 (08:18→20:22)
[2017-12-24] MEDS: DULoxetine 60 MG CAP PO SCH (08:18)
[2017-12-24] MEDS: Acetaminophen 325 MG TAB PO PRN ×2 (08:21→19:32)
[2017-12-24] MEDS: Vancomycin HCl 1 GM in Premix Bag 1 BAG IVPB SCH (08:29)
--- NOTE | 2017-12-24 15:48 | PDOC.PN ---
- Subjective Encounter Start Date: 12/24/17 Encounter Start Time: 11:00 Patient seen and examined. No new complaints. No overnight events. No IV access per RN - Objective Resuscitation Status: Resuscitation Status DNI:No Intubation MAR Reviewed: Yes Vital Signs & Weight: Vital Signs (12 hours) Temp Pulse Resp BP BP Pulse Ox 12/24/17 11:21 69 18 99 12/24/17 08:18 145/77 H 12/24/17 08:00 99.1 F 78 16 12/24/17 07:12 99.1 F 78 16 145/77 H 96 Weight Admit Weight 167 lb 6 oz Weight 167 lb 6 oz I&O: 12/23/17 12/24/17 12/25/17 06:59 06:59 06:59 Intake Total 440 920 Output Total 150 200 Balance 290 720 Result Diagrams: 12/24/17 07:55 12/24/17 07:55 Additional Labs: Accuchecks 12/24/17 12/24/17 12/23/17 11:22 05:24 19:54 POC Glucose 177 H 234 H 248 H 12/23/17 17:16 POC Glucose 187 H Microbiology 12/20/17 16:52 Urine Straight Catheter Urine Culture - Final NO GROWTH AT 48 HOURS 12/20/17 16:55 Venous blood - Right Hand Blood Culture - Preliminary Specimen has been received and culture in progress. No Growth to date. 12/20/17 16:55 Venous blood - Right Hand Blood Culture - Preliminary NO GROWTH AT 48 HOURS 12/20/17 16:11 Venous blood - Left Arm Blood Culture - Preliminary Specimen has been received and culture in progress. No Growth to date. 12/20/17 16:11 Venous blood - Left Arm Blood Culture - Preliminary NO GROWTH AT 48 HOURS Phys Exam - Physical Examination Constitutional: NAD Respiratory: no wheezing, no rhonchi Cardiovascular: RRR, no rub Gastrointestinal: soft, non-tender, positive bowel sounds colostomy/wound vac + Musculoskeletal: no edema dressing + Neurological: moves all 4 limbs Dx/Plan - Plan DVT proph w/lovenox IMPRESSION: 1. Toxic Metabolic Encephalopathy due to infectious etio ?UTI - cultures negative/ ?Sepsis due to UTI (present on admission) 2. Decubitus ulcer present on admission (Please see wound care note) 3. DM2 - on sliding scale/glimepiride 4. HTN 5. CAD / PAD / Chronic Anemia 6. Other issues per H&P PLAN: * DC IV Atbx per ID - I d/w Dr Higgins * Await final cultures per ID * Dr Higgins recommended to dc home only after negative final cultutes * Cont current meds as below * Cont wound care * ID following Review of Systems - Review of Systems Respiratory: negative: Cough, Dry, Shortness of Breath, Hemoptysis, SOB with Excertion, Pleuritic Pain, Sputum, Wheezing Cardiovascular: negative: chest pain, palpitations, orthopnea, paroxysmal nocturnal dyspnea, edema, light headedness, other - Medications/Allergies Allergies/Adverse Reactions: Allergies Allergy/AdvReac Type Severity Reaction Status Date / Time No Known Drug Allergies Allergy Verified 10/23/17 20:29 Medications: Current Medications Acetaminophen (Tylenol) 650 mg PO Q4H PRN PRN Reason: Headache/Fever or Pain Last Admin: 12/24/17 08:21 Dose: 650 mg Acetaminophen (Tylenol) 650 mg [place] Q4H PRN PRN Reason: Headache/Fever or Pain Albuterol Sulfate (Ventolin) 2.5 mg NEB [id number] PRN PRN Reason: SOB &/or Wheezing Albuterol/Ipratropium (Duoneb) 3 ml NEB [id number] [facility] Last Admin: 12/24/17 11:21 Dose: 3 ml Albuterol/Ipratropium (Duoneb) 3 ml NEB [id number] PRN PRN Reason: SOB &/or Wheezing Atorvastatin Calcium (Lipitor) 40 mg PO DAILY [facility] Last Admin: 12/24/17 08:17 Dose: 40 mg Baclofen (Lioresal) 20 mg PO BID [facility] Last Admin: 12/24/17 08:17 Dose: 20 mg Carvedilol (Coreg) 6.25 mg PO BID [facility] Last Admin: 12/24/17 08:18 Dose: 6.25 mg Dextrose/Water (Dextrose 50%) 25 gm SLOW IVP PRN PRN PRN Reason: Hypoglycemia Docusate Sodium (Colace) 100 mg PO BID [facility] Last Admin: 12/24/17 08:17 Dose: 100 mg Duloxetine HCl (Cymbalta) 60 mg PO DAILY [facility] Last Admin: 12/24/17 08:18 Dose: 60 mg Enoxaparin Sodium (Lovenox) 30 mg SC 2100 [facility] Last Admin: 12/23/17 19:58 Dose: 30 mg Famotidine (Pepcid) 20 mg PO BID [facility] Last Admin: 12/24/17 08:18 Dose: 20 mg Glimepiride (Amaryl) 2 mg PO BID-[facility] Last Admin: 12/24/17 08:17 Dose: 2 mg Glucagon (Glucagon) 1 mg IM PRN PRN PRN Reason: Hypoglycemia Dextrose/Water (D5w) 1,000 mls @ 0 mls/hr IV .Q0M PRN; As Directed PRN Reason: Hypoglycemia Insulin Human Lispro (Humalog) 0 units SC .MILD SLIDING SCALE PRN PRN Reason: Mild Correctional Scale Last Admin: 12/24/17 12:57 Dose: 2 unit Lactulose (Lactulose) 20 gm PO DAILYPRN PRN PRN Reason: Constipation Magnesium Hydroxide (Milk Of Magnesium) 30 ml PO DAILYPRN PRN PRN Reason: Constipation Miscellaneous Medication (Pharmacy To Dose) 1 each IVPB PRN PRN PRN Reason: Pharmacy to dose Ondansetron HCl (Zofran) 4 mg IVP Q6H PRN PRN Reason: Nausea/Vomiting Pioglitazone HCl (Actos) 30 mg PO DAILY [facility] Last Admin: 12/24/17 08:18 Dose: 30 mg Saccharomyces Boulardii (Florastor) 250 mg PO DAILY [facility] Last Admin: 12/24/17 08:18 Dose: 250 mg Sodium Chloride (Flush - Normal Saline) 10 ml IVF Q12HR [facility] Last Admin: 12/24/17 08:29 Dose: 10 ml Sodium Chloride (Flush - Normal Saline) 10 ml IVF PRN PRN PRN Reason: Saline Flush Tamsulosin HCl (Flomax) 0.4 mg PO BID-AC [facility] Last Admin: 12/24/17 08:17 Dose: 0.4 mg Tramadol HCl (Ultram) 50 mg PO Q4H PRN PRN Reason: Mild-Moderate Pain (1-5) Last Admin: 12/24/17 10:31 Dose: 50 mg
[2017-12-24] MEDS: Enoxaparin Sodium 30 MG/0.3 ML SYRINGE SC SCH (20:23)
[2017-12-25] MEDS: traMADol HCl 50 MG TAB PO PRN ×3 (01:02→15:06)
[2017-12-25] MEDS: Baclofen 10 MG TAB PO SCH (08:25)
[2017-12-25] MEDS: Atorvastatin Calcium 40 MG TAB PO SCH (08:25)
[2017-12-25] MEDS: Tamsulosin HCl 0.4 MG CAP PO SCH (08:25)
[2017-12-25] MEDS: Pioglitazone HCl 15 MG TAB PO SCH (08:26)
[2017-12-25] MEDS: DULoxetine 60 MG CAP PO SCH (08:26)
[2017-12-25] MEDS: Carvedilol 6.25 MG TAB PO SCH (08:26)
[2017-12-25] MEDS: Glimepiride 1 MG TAB PO SCH (08:26)
[2017-12-25] MEDS: Famotidine 20 MG TAB PO SCH (08:26)
[2017-12-25] MEDS: Docusate 100 MG CAP PO SCH (08:26)
[2017-12-25] MEDS: Saccharomyces boulardii 250 MG CAP PO SCH (08:26)
[2017-12-25 08:29] VITALS: BP 162/66; TEMP 98.1
--- NOTE | 2017-12-26 07:12 | DIS ---
DATE OF DISCHARGE: 12/25/2017 DISCHARGE DISPOSITION: Home. FOLLOWUP: 1. Follow up with primary care physician, Dr. Alexsander Davila in 1 week. 2. Follow up with Dr. Higgins in 1-2 weeks. ALLERGIES: No known drug allergies. The patient was seen on the day of discharge. Denies any new complaints, no chest pain, shortness of breath, palpitations. DISCHARGE MEDICATIONS: Same as admission medications. Please note that antibiotics have been discon tinued per Infectious Disease's recommendation. No changes in his home medications were made. BRIEF HOSPITAL COURSE: The patient is a 72-year-old white male with peripheral vascular disease, shy betes mellitus type 2, COPD, and chronic abdominal wound requiring wound VAC presented to the emergen cy room with altered mentation. Please refer to the history and physical for further details. The patient was admitted to the medical floor with a diagnosis of sepsis probably secondary to urinar y tract infection. His urine wbc was greater than 50 without any bacteria. It was nitrite negative with large amount of leukocyte esterase. His WBC on admission was 14 that improved to 8.5 after 3 da ys of antibiotics. His blood cultures and urine cultures; however, has been negative. The patient w as evaluated by Infectious Disease, Dr. Higgins, who recommended discontinuation of the antibiotic. Pl ease note that patient was on minocycline at home that could have contributed to his altered mentatio n. Dr. Higgins recommended to discontinue minocycline as well. He will be discharged home with no ant ibiotics per Dr. Higgins's recommendation. He was advised to call Dr. Higgins's office if he develops an y new fever. He will continue wound care at home. Plan of care was discussed with the patient in detail. He stated understanding. FINAL DIAGNOSES: 1. Toxic metabolic encephalopathy of unclear etiology. Minocycline has been discontinued. 2. Urinary tract infection suspected on admission/sepsis due to urinary tract infection suspected on admission. However, urine cultures have been negative. Antibiotics discontinued per Infectious Dis ease recommendation. 3. Several skin ulcers/decubitus ulcer present on admission. Continue wound care and wound VAC. 4. Diabetes mellitus type 2. 5. Hypertension. 6. Coronary artery disease. 7. Peripheral arterial disease. 8. Chronic anemia. 9. Chronic obstructive pulmonary disease. 10. Gangrene of the toes. 11. Chronic diastolic heart failure. 12. Deconditioning. 13. Dyslipidemia. Plan of care was discussed with the patient and the family at the bedside. They stated understanding .
== END 2017-12-25 16:11 | disposition home health service (06) | DRG 91 ==
LOC: ERS 15:59 → T4-B 18:29
PROVIDERS: ADMIT Internal Medicine; ATTEND Internal Medicine
DX: G92 Toxic encephalopathy (principal); L89.154 Pressure ulcer of sacral region, stage 4; E11.51 Type 2 diabetes mellitus with diabetic peripheral angiopathy without gangrene; I11.0 Hypertensive heart disease with heart failure; I50.32 Chronic diastolic (congestive) heart failure; L89.620 Pressure ulcer of left heel, unstageable; J44.9 Chronic obstructive pulmonary disease, unspecified; E78.5 Hyperlipidemia, unspecified; F41.9 Anxiety disorder, unspecified; F32.9 Major depressive disorder, single episode, unspecified; I25.10 Atherosclerotic heart disease of native coronary artery without angina pectoris; T36.4X5A Adverse effect of tetracyclines, initial encounter; Z48.815 Encounter for surgical aftercare following surgery on the digestive system
CPT/HCPCS: 36415; 36416; 51701; 70450; 71045; 80048; 80053; 80202; 80306; 80307; 81003; 81015; 82140; 82330; 82803; 83036; 83605; 83690; 84443; 84484; 85025; 85610; 85730; 87040; 87086; 90471; 90682; 93005; 94640; 96365; 96375; A4216; G0008; J0696; J1644; J1650; J1885; J3370; J7050; J7620; Q2036